=== PATIENT | female | born 1955 | race Caucasian/White ===

== ENCOUNTER 2023-10-21 20:32 | Emergency (ER) | payer MEDICARE, OTHER | END 2023-10-21 22:24 | disposition home or self-care (01) | LOC: DL.ED 20:32 | DX: S83.91XA Sprain of unspecified site of right knee, initial encounter (principal); W20.8XXA Other cause of strike by thrown, projected or falling object, initial encounter; Y93.G2 Activity, grilling and smoking food | CPT/HCPCS: 73562-RT; 99283 ==

== ENCOUNTER 2023-12-20 07:13 | Day surgery (SDC) | payer MEDICARE, OTHER ==
[~2023-12-20 07:13] MED LIST: Midazolam 1 MG/ML 2 ML SDV ONE; fentaNYL 100 MCG/2 ML SDV ONE
[2023-12-20] MEDS ORDERED: fentaNYL 100 MCG/2 ML SDV IV ONE (07:14)
[2023-12-20] MEDS ORDERED: Midazolam 1 MG/ML 2 ML SDV IV ONE (07:14)
[2023-12-20] MEDS: Dextrose 5%-0.45% NaCl 1,000 ML IV SCH (07:36)
[2023-12-20] MEDS: fentaNYL 100 MCG/2 ML SDV IV ONE ×3 (07:51→08:01)
[2023-12-20] MEDS: Midazolam 1 MG/ML 2 ML SDV IV ONE ×5 (07:52→08:08)
== END 2023-12-20 10:14 | disposition home or self-care (01) ==
LOC: DL.ENDO 07:13
PROVIDERS: ATTEND Internal Medicine Gastroenterology
DX: Z12.11 Encounter for screening for malignant neoplasm of colon (principal); D12.3 Benign neoplasm of transverse colon; K62.1 Rectal polyp; F17.210 Nicotine dependence, cigarettes, uncomplicated
CPT/HCPCS: 45385; 88305; J2250; J3010; J7799